=== PATIENT | female | born 1955 | race Caucasian/White ===

== ENCOUNTER 2017-06-03 07:18 | Observation (INO) | payer OTHER ==
[2017-06-03 08:22] LABS: ADD MAN DIFF? NO
[2017-06-03 08:38] LABS: BASOPHILS % 0.5 % (0.0-2.0); EOSINOPHILS # 0.1 10^3/ul (0.0-0.5); EOSINOPHILS % 1.9 % (0.0-7.0); HEMATOCRIT 36.9 % (37.0-47.0); HEMOGLOBIN 12.2 g/dl (12.0-16.0); LYMPHOCYTES # 1.9 10^3/ul (0.8-2.9); LYMPHOCYTES % 44.2 % (15.0-51.0); MEAN CORPUSCULAR HEMOGLOBIN 31.4 pg (29.0-33.0); MEAN CORPUSCULAR HGB CONC 33.1 g/dl (32.0-37.0); MEAN CORPUSCULAR VOLUME 94.9 fl (82.0-101.0); MEAN PLATELET VOLUME 10.2 fl (7.4-10.4); MONOCYTE # 0.4 10^3/ul (0.3-0.9); MONOCYTES % 8.2 % (0.0-11.0); NEUTROPHIL # 1.9 10^3/ul (1.6-7.5); NEUTROPHILS % 45.2 % (39.0-77.0); PLATELET COUNT 227 10^3/UL (140-415); RED BLOOD COUNT 3.89 10^6/ul (4.20-5.40); RED CELL DISTRIBUTION WIDTH 13.6 % (11.5-14.5)
[2017-06-03 08:48] LABS: INR 1.02; PROTIME 13.5 Sec (11.9-14.9); PT RATIO 1.1
[2017-06-03 08:49] LABS: PARTIAL THROMBOPLASTIN TIME 28.8 Sec (25.0-35.0)
[2017-06-03 08:52] LABS: ANION GAP 12 (8-16); CARBON DIOXIDE 25 mmol/L (21-31); CHLORIDE 109 mmol/L (97-110); CHOL/HDL RATIO 2.2 RATIO; CHOLESTEROL 124 mg/dl (100-200); GLUCOSE 108 mg/dl (70-220); HDL CHOLESTEROL 56 mg/dl (35-98); LDL CHOLESTEROL,CALCULATED 53 mg/dl; TRIGLYCERIDES 75 mg/dl (0-149)
[2017-06-03 08:56] LABS: BLOOD UREA NITROGEN 18 mg/dl (7-20); CALCIUM 8.9 mg/dl (8.4-10.2); CREATININE 0.87 mg/dl (0.44-1.00); POTASSIUM 4.1 mmol/L (3.5-5.1); SODIUM 142 mmol/L (135-144)
[2017-06-03 08:59] LABS: HOLD TRANSMISSIONS 1
[2017-06-03 09:00] LABS: WHITE BLOOD COUNT 4.3 10^3/ul (4.8-10.8)
[2017-06-03] MEDS ORDERED: ONDANSETRON 4 MG INJ IV (09:00)
[2017-06-03] MEDS ORDERED: LABETALOL HCL 20MG INJ IV (09:00)
[2017-06-03] MEDS ORDERED: hydrALAzine 20 MG INJ IV (09:00)
[2017-06-03] MEDS ORDERED: POLYMYXIN/BACITRACIN 1L IRRIG (09:11)
[2017-06-03] MEDS ORDERED: PROPOFOL 60 ML (09:16)
[2017-06-03] MEDS ORDERED: MIDAZOLAM 1 MG/ML 2 ML INJ (09:16)
[2017-06-03] MEDS ORDERED: FENTAnyl 50 MCG/ML VIAL ×2 (09:16→16:46)
[2017-06-03] MEDS ORDERED: CEFAZOLIN 2 GM/50 ML (PMX) 50 ML IVPB (09:21)
[2017-06-03] MEDS ORDERED: BUPIVACAINE 0.5% (SDV) 30 ML INJ (09:21)
[2017-06-03] MEDS ORDERED: SOD CHLORIDE 0.9% 500 ML (09:23)
[2017-06-03] MEDS ORDERED: ONDANSETRON 4 MG INJ (10:22)
[2017-06-03] MEDS ORDERED: ACETAMINOPHEN 325 MG TAB PO (11:00)
[2017-06-03] MEDS ORDERED: HYDROCODONE/APAP (5/325) TAB PO (11:00)
[2017-06-03] MEDS ORDERED: morphine 2 MG INJ IV ×2 (11:00)
[2017-06-03] MEDS: SOD CHLORIDE 0.9% 1,000 ML IV (11:21)
[2017-06-03] MEDS ORDERED: LORAZEPAM 0.5 MG TAB PO (13:30)
[2017-06-03] MEDS ORDERED: LOSARTAN 50 MG TAB PO ×2 (13:30→19:00)
[2017-06-03] MEDS: morphine (1 MG/ML) 10ML SYRINGE IV (13:41)
[2017-06-03] MEDS: FENTAnyl 50 MCG/ML VIAL IV (16:48)
[2017-06-03] MEDS: CEFAZOLIN 1 GM/50 ML (PMX) 50 ML IVPB (17:10)
[2017-06-03] MEDS: LOSARTAN 50 MG TAB PO (18:58)
[2017-06-03] MEDS: ATORVASTATIN 40 MG TAB PO (20:19)
[2017-06-03] MEDS: ONDANSETRON 4 MG INJ IV (20:20)
[2017-06-03] MEDS: morphine 2 MG INJ IV (20:23)
[2017-06-04] MEDS: CEFAZOLIN 1 GM/50 ML (PMX) 50 ML IVPB ×2 (00:35→08:20)
[2017-06-04] MEDS: ONDANSETRON 4 MG INJ IV (00:55)
[2017-06-04] MEDS: morphine 2 MG INJ IV (00:56)
[2017-06-04] MEDS: CLOPIDOGREL 75 MG TAB PO (08:21)
[2017-06-04] MEDS: FUROSEMIDE 20 MG TAB PO (08:21)
[2017-06-04] MEDS: ASPIRIN (EC) 81 MG TAB PO (08:21)
[2017-06-04 08:43] LABS: ADD MAN DIFF? NO
[2017-06-04 08:48] LABS: BASOPHILS % 0.4 % (0.0-2.0); EOSINOPHILS # 0.1 10^3/ul (0.0-0.5); EOSINOPHILS % 2.2 % (0.0-7.0); HEMATOCRIT 35.6 % (37.0-47.0); HEMOGLOBIN 11.4 g/dl (12.0-16.0); MEAN CORPUSCULAR HEMOGLOBIN 31.5 pg (29.0-33.0); MEAN CORPUSCULAR VOLUME 98.3 fl (82.0-101.0); MEAN PLATELET VOLUME 10.6 fl (7.4-10.4); MONOCYTE # 0.4 10^3/ul (0.3-0.9); MONOCYTES % 7.7 % (0.0-11.0); NEUTROPHIL # 2.6 10^3/ul (1.6-7.5); NEUTROPHILS % 50.7 % (39.0-77.0); PLATELET COUNT 206 10^3/UL (140-415); RED BLOOD COUNT 3.62 10^6/ul (4.20-5.40); RED CELL DISTRIBUTION WIDTH 13.9 % (11.5-14.5)
[2017-06-04 08:48] LABS: WHITE BLOOD COUNT 5.1 10^3/ul (4.8-10.8)
[2017-06-04 09:11] LABS: ANION GAP 13 (8-16); BLOOD UREA NITROGEN 16 mg/dl (7-20); CALCIUM 8.9 mg/dl (8.4-10.2); CARBON DIOXIDE 27 mmol/L (21-31); CHLORIDE 108 mmol/L (97-110); CREATININE 0.91 mg/dl (0.44-1.00); GLUCOSE 102 mg/dl (70-220); POTASSIUM 4.6 mmol/L (3.5-5.1); SODIUM 143 mmol/L (135-144)
== END 2017-06-04 16:39 | disposition home or self-care (01) ==
LOC: SDS 07:18 → REC 10:56 → TEL 17:28
DX: I49.5 Sick sinus syndrome (principal); I10 Essential (primary) hypertension; E78.5 Hyperlipidemia, unspecified; R53.83 Other fatigue; Z87.891 Personal history of nicotine dependence; I25.10 Atherosclerotic heart disease of native coronary artery without angina pectoris; Z95.5 Presence of coronary angioplasty implant and graft; I25.2 Old myocardial infarction
CPT/HCPCS: 71045; 80048; 80061; 83735; 85025; 85610; 85730; 93005; G0378

== ENCOUNTER 2017-08-08 06:59 | Day surgery (SDC) | payer OTHER ==
[2017-08-08 07:46] LABS: ADD MAN DIFF? NO
[2017-08-08 08:02] LABS: BASOPHILS % 0.5 % (0.0-2.0); EOSINOPHILS # 0.1 10^3/ul (0.0-0.5); EOSINOPHILS % 2.6 % (0.0-7.0); HEMOGLOBIN 12.5 g/dl (12.0-16.0); LYMPHOCYTES % 46.7 % (15.0-51.0); MEAN CORPUSCULAR HEMOGLOBIN 31.6 pg (29.0-33.0); MEAN CORPUSCULAR HGB CONC 32.9 g/dl (32.0-37.0); MEAN CORPUSCULAR VOLUME 96.2 fl (82.0-101.0); MEAN PLATELET VOLUME 10.1 fl (7.4-10.4); MONOCYTE # 0.4 10^3/ul (0.3-0.9); NEUTROPHIL # 1.7 10^3/ul (1.6-7.5); PLATELET COUNT 216 10^3/UL (140-415); RED BLOOD COUNT 3.95 10^6/ul (4.20-5.40); RED CELL DISTRIBUTION WIDTH 13.7 % (11.5-14.5)
[2017-08-08 08:02] LABS: WHITE BLOOD COUNT 4.2 10^3/ul (4.8-10.8)
[2017-08-08 08:08] LABS: HOLD TRANSMISSIONS 1
[2017-08-08 08:14] LABS: ANION GAP 15 (8-16); CARBON DIOXIDE 27 mmol/L (21-31); CHLORIDE 108 mmol/L (97-110); CHOL/HDL RATIO 2.5 RATIO; CHOLESTEROL 142 mg/dl (100-200); GLUCOSE 102 mg/dl (70-220); HDL CHOLESTEROL 55 mg/dl (35-98); LDL CHOLESTEROL,CALCULATED 61 mg/dl; TRIGLYCERIDES 129 mg/dl (0-149)
[2017-08-08 08:19] LABS: BLOOD UREA NITROGEN 21 mg/dl (7-20); CALCIUM 8.6 mg/dl (8.4-10.2); CREATININE 0.94 mg/dl (0.44-1.00); POTASSIUM 4.1 mmol/L (3.5-5.1)
[2017-08-08 08:20] LABS: SODIUM 146 mmol/L (135-144)
[2017-08-08 08:29] LABS: INR 0.96; PROTIME 12.9 Sec (11.9-14.9)
[2017-08-08 08:30] LABS: PARTIAL THROMBOPLASTIN TIME 27.2 Sec (25.0-35.0)
[2017-08-08] MEDS ORDERED: IODIXANOL LOCM 100 ML BTL (09:06)
[2017-08-08] MEDS ORDERED: HEPARIN 1000 UNITS/ML 10 ML INJ (09:06)
[2017-08-08] MEDS ORDERED: LIDOCAINE 1% (MDV) 20 ML INJ (09:06)
[2017-08-08] MEDS ORDERED: NITROGLYCERIN (IC) 100 MCG/ML INJ (09:07)
[2017-08-08] MEDS ORDERED: VERAPAMIL 5 MG INJ (09:07)
[2017-08-08] MEDS ORDERED: MIDAZOLAM 1 MG/ML 2 ML INJ (09:07)
[2017-08-08] MEDS ORDERED: FENTAnyl 50 MCG/ML VIAL (09:07)
[2017-08-08] MEDS ORDERED: ONDANSETRON 4 MG INJ IV (10:30)
[2017-08-08] MEDS ORDERED: AL HYDROX/MG HYDROX/SIMETH 30 ML CUP PO (10:30)
[2017-08-08] MEDS ORDERED: morphine 2 MG INJ IV (10:30)
[2017-08-08] MEDS ORDERED: ACETAMINOPHEN 325 MG TAB PO (10:30)
[2017-08-08] MEDS ORDERED: IOHEXOL 350MG/ML 50 ML BTL (10:46)
[2017-08-08] MEDS ORDERED: TICAGRELOR 90 MG TABLET (10:55)
[2017-08-08] MEDS ORDERED: BIVALIRUDIN 250MG /NS 50 ML 50 ML IVPB (10:55)
[2017-08-08] MEDS: SOD CHLORIDE 0.9% 1,000 ML IV (11:16)
== END 2017-08-08 13:30 | disposition home or self-care (01) ==
LOC: SDS 06:59
DX: I25.10 Atherosclerotic heart disease of native coronary artery without angina pectoris (principal); R94.39 Abnormal result of other cardiovascular function study; I10 Essential (primary) hypertension; E78.5 Hyperlipidemia, unspecified; I25.2 Old myocardial infarction; E78.00 Pure hypercholesterolemia, unspecified; Z79.01 Long term (current) use of anticoagulants
CPT/HCPCS: 71045; 80048; 80061; 85025; 85610; 85730; 93005; 93458